=== PATIENT | female | born 1995 | race Caucasian/White ===

== ENCOUNTER → 2020-11-22 | Outpatient (CLI) | payer MEDICAID ==
--- NOTE | 2020-12-01 02:23 | ECWPNPC ---
PATIENT NAME: ZABRINA TRAN : 1995 GENDER: FEMALE VISIT DATE: 11/22/2020 DISCHARGE DATE: 11/22/20 0951 VISIT LOCKED DATE TIME: PHYSICIAN: XIOMARA MAO RESOURCE: XIOMARA MAO REASON FOR APPOINTMENT 1. NECK PAIN HISTORY OF PRESENT ILLNESS DEPRESSION SCREENING: PHQ-2 (2015 EDITION) LITTLE INTEREST OR PLEASURE IN DOING THINGS?NOT AT ALL FEELING DOWN, DEPRESSED, OR HOPELESS?NOT AT ALL TOTAL SCORE0 GENERAL: 25-YEAR-OLD FEMALE BEING REFERRED BY [facility] FOR PERSISTENT NECK PAIN WITH A HISTORY OF MIGRAINE HEADACHES. PATIENT REPORTS THAT NECK GETS TIGHT AND LEADS TO HEADACHES FREQUENTLY. STATES MUSCLE RELAXANTS DO NOT WORK. OVERALL DOES NOT WANT TO TAKE ANY MEDICATIONS. RECENTLY STARTED ON MAGNESIUM PER NEUROLOGY. DISCUSSED TREATMENT OPTIONS TO INCLUDE TRIGGER POINT INJECTIONS AND PHYSICAL THERAPY FOR MYOFASCIAL RELEASE. SHE WOULD LIKE TO TRY PHYSICAL THERAPY FIRST AND MAY CONSIDER DOING TRIGGER POINT INJECTIONS IF NO IMPROVEMENT. DENIES RECENT ILLNESS OR SUDDEN WEIGHT LOSS. DENIES BOWEL OR BLADDER INCONTINENCE.-. FALL RISK SCREENING: SCREENING :NO FALLS REPORTED IN THE LAST YEAR PAIN SCREENING: PATIENT HAS A COMPLAINT OF ACUTE OR CHRONIC PAIN :YES LOCATION OF PAIN:NECK, BOTH SHOULDERS INTENSITY OF PAIN (SCALE OF 1 TO 10):4 WHAT DOES YOUR PAIN FEEL LIKE:BURNING, CONTINOUS FEELS LIKE SHE IS BEING "PINCHED REAL HARD." DURATION:CONTINOUS, CONSTANT, AWAKENS FROM SLEEP PAIN IS INCREASED BY:ACTIVITIES, PROLONGED STANDING PAIN IS DECREASED BY:OTHERS HEAT NURSING NOTE: -. PAIN CENTER INTAKE QUESTIONS: DO YOU HAVE A HISTORY OF MRSA? :NO DO YOU TAKE A BLOOD THINNERS? :NO DO YOU HAVE ANY BLEEDING DISORDERS? :NO ANY NEW NUMBNESS OR WEAKNESS IN YOUR LEGS OR ARMS? :NO ANY PACEMAKER,DEFIBRILLATOR, OR DORSAL COLUMN STIMULATOR? :NO DO YOU HAVE ANY RASHES OR OPEN SORES? :YES ITCHY RASH ON NECK. ARE YOU ALLERGIC TO IV DYE? :NO ARE YOU DIABETIC? :NO ANY NEW PROBLEMS WITH YOUR MEDICATIONS? :NO HAVE YOU RECEIVED A VACCINE IN THE PAST 30 DAYS? :NO DO YOU PLAN TO RECEIVE A VACCINE IN THE NEXT 21 DAYS? :NO DO YOU NEED ANY PRESCRIPTION? :NO DO YOU TAKE ANY IMMUNOSUPPRESSIVE MEDICATIONS? :NO IS THERE A CHANCE YOU COULD BE ? :NO ARE YOU BREAST FEEDING? :NO CURRENT MEDICATIONS TAKING TYLENOL ARTHRITIS PAIN _ 1 CAP DIRECTED, NOTES: 650 MG TAKING CHILDRENS CHEWABLE MULTI VITS - TABLET CHEWABLE 1 TABLET ORALLY ONCE A DAY NOT-TAKING RIBOFLAVIN 100 MG TABLET 1 TABLET ORALLY ONCE A DAY MEDICATION LIST REVIEWED AND RECONCILED WITH THE PATIENT PAST MEDICAL HISTORY HEART MURMUR PALPITATIONS ASTHMA ANXIETY ARTHRITIS SCOLIOSIS ABDOMINAL PAIN ALLERGIES DOXYCYCLINE: HIVES, RASH - ALLERGY SURGICAL HISTORY DENIES PAST SURGICAL HISTORY FAMILY HISTORY FATHER: ALIVE MOTHER: ALIVE, DIAGNOSED WITH DIABETES SON(S): ALIVE PATERNAL GRAND FATHER: ALIVE, UNSPECIFIED HEART DISEASE, DIABETES PATERNAL GRAND MOTHER: ALIVE 1 BROTHER(S) , 1 SISTER(S) - HEALTHY. 2 SON(S) - HEALTHY. SOCIAL HISTORY GENERAL: TOBACCO USE ARE YOU A:NONSMOKER LATEX QUESTIONNAIRE LATEX ALLERGY : HAVE YOU EVER DEVELOPED ANY TYPE OF REACTION AFTER HANDLING LATEX PRODUCTS SUCH RUBBER GLOVES, CONDOMS, DIAPHRAGMS, BALLOONS, SOCKS, OR UNDERWEAR?NO LATEX ALLERGY : HAVE YOU EVER DEVELOPED ANY TYPE OF REACTION DURING OR AFTER DENTAL APPOINTMENT, VAGINAL/RECTAL EXAMINATION, SURGICAL PROCEDURE, OR ANY OTHER EXPOSURE?NO LATEX RISK : HAVE YOU EVER HAD ANY DIFFICULTY BREATHING OR HIVES AFTER EATING OR HANDLING ANY FRUITS, OR VEGETABLES; SUCH KIWI, BANANAS, STONE FRUITS, OR CHESTNUTSNO LATEX RISK : DO YOU HAVE A PREVIOUS PERSONAL HISTORY OF MORE THAN NINE SURGERIES, SPINA BIFIDA, OR REPEATED CATHERIZATIONS? NO LATEX RISK : ARE YOU FREQUENTLY EXPOSED TO LATEX PRODUCTS IN YOUR OCCUPATION?YES DATE ASKED : 11/22/2020 ALCOHOL USE: NO. RECREATIONAL DRUG USE DRUG USE?NO HIV / HEP-C SCREENING HIV TEST OFFERED TO PATIENT:YES DATE OFFERED:09/27/2016 TEST ACCEPTED:NO HEP-C TEST OFFERED TO PATIENT:NO REASON:PATIENT DECLINED LEARNING BARRIERS / SPECIAL NEEDS CHANGE FROM LAST VISIT?NO BARRIERS TO LEARNING?NO HEARING IMPAIRED?NO VISION IMPAIRED?NO COGNITIVELY IMPAIRED?NO READINESS TO LEARN?YES LEARNING PREFERENCES?NO LEARNING CAPABILITIES PRESENT?YES EMOTIONAL BARRIERS?NO SPECIAL DEVICES?YES :BRACE BR[employer]ES FOR BILATERAL HANDS FINANCIAL INSTITUTION BRANCH MANAGER NEEDED?NO HOSPITALIZATION/MAJOR DIAGNOSTIC PROCEDURE CHILDBIRTH 2X REVIEW OF SYSTEMS CONSTITUTIONAL: ANY RECENT FEVER NO . CHILLS NO . WEIGHT CHANGE OF UNKNOWN REASONS NO . GASTROENTEROLOGY: NEW UNEXPLAINABLE CHANGES IN BOWEL CONTROL NO . CONSTIPATION NO . GENITOURINARY: ANY NEW CHANGE IN BLADDER CONTROL? NO . NEUROLOGY: NEW ONSET DIZZINESS OR NEUROLOGICAL CHANGES NOT MENTIONED NO . NEW NUMBNESS OR PAIN PATTERNS NOT MENTIONED AND PERTINENT TO TODAY'S VISIT NO . CARDIOLOGY: NEW CHEST PRESSURE NO . NEW CHEST PAIN NO . RESPIRATORY: UNEXPLAINABLE COUGH NO . NEW SHORTNESS OF BREATH NO . VITAL SIGNS WT 204.8 LBS, HT 59 IN, BMI 41.36 INDEX, BP 110/69 MM HG, HR 78 /MIN, RR 18 /MIN, TEMP 98.2 F, OXYGEN SAT % 100%, SAFE IN ENV? (Y/N) YES, REVIEWED BY: WILLIAM MCCALLUM MA. EXAMINATION GENERAL EXAMINATION: GENERAL AWAKE,ALERT ,PLEAASANT . PSYCH AFFECT NORMAL . NECK:NO LYMPHADENOPATHY, SUPPLE. LUNGS: LUNG HANNAH ARE CLEAR TO AUSCULTATION BILATERALLY. GOOD MOVEMENT OF AIR . HEART: S1, S2 IN A REGULAR RATE AND RHYTHM. NO SIGNIFICANT MURMURS, RUBS OR GALLOPS NOTED . CERVICAL: TRIGGER POINTS: CERVICAL AND TRAPEZIUS BILAT..PAIN IS AGGREVATED WITH ROJM NECK. ASSESSMENTS MYALGIA, OTHER SITE - M79.18 (PRIMARY) TREATMENT MYALGIA, OTHER SITE NOTES: F/U AFTER PT 2XWK X 6WKS FOR MYOFASCIAL RELEASE. REFERRAL TO:[facility]ICAL [facility]ERAPY [facility] REASON:MYOFASCIAL RELEASE 2XWK X6WKS NECK,LOW BACK AND HIPS PROCEDURE CODES FA211 ESTABILISHED PATIENT [facility] FACILITY CHARGE DISPOSITION & COMMUNICATION FOLLOW UP 10 WKS PT F/U (REASON: MYALGIA F/U AFTER PT) ELECTRONICALLY SIGNED BY BRIAN BERNABE ON 11/30/2020 AT 11:26 AM EST DISCLAIMER : THIS IS A VISIT SUMMARY EXTRACTED FROM THE [employer] CHART. IT IS NOT A COPY OF THE [employer] PROGRESS NOTE. DEVIN
== END ==
LOC: M PAIN 08:30
PROVIDERS: ATTEND Nurse Practitioner Family
DX: M79.18 Myalgia, other site (principal); J45.909 Unspecified asthma, uncomplicated; Z86.59 Personal history of other mental and behavioral disorders; Z88.1 Allergy status to other antibiotic agents; E66.01 Morbid (severe) obesity due to excess calories; Z68.41 Body mass index [BMI] 40.0-44.9, adult; Z79.899 Other long term (current) drug therapy